=== PATIENT | female | born 1975 | race Hispanic/Latino ===

== ENCOUNTER → 2023-09-14 | Outpatient (CLI) | payer OTHER, BC | END | disposition home or self-care (01) | LOC: RAH 11:53 | PROVIDERS: ATTEND Obstetrics & Gynecology | DX: N93.9 Abnormal uterine and vaginal bleeding, unspecified (principal); R93.89 Abnormal findings on diagnostic imaging of other specified body structures; D25.9 Leiomyoma of uterus, unspecified; N83.202 Unspecified ovarian cyst, left side; N83.201 Unspecified ovarian cyst, right side | CPT/HCPCS: 76830 ==

== ENCOUNTER → 2023-11-14 | Outpatient (CLI) | payer OTHER, BC | END | disposition home or self-care (01) | LOC: RAH 13:19 | PROVIDERS: ATTEND Obstetrics & Gynecology | DX: D25.9 Leiomyoma of uterus, unspecified (principal); N85.8 Other specified noninflammatory disorders of uterus; R93.89 Abnormal findings on diagnostic imaging of other specified body structures | CPT/HCPCS: 76830 ==

== ENCOUNTER → 2024-07-08 | Outpatient (CLI) | payer BC, OTHER | END | disposition home or self-care (01) | LOC: RAH 08:45 | PROVIDERS: ATTEND Obstetrics & Gynecology | DX: Z12.31 Encounter for screening mammogram for malignant neoplasm of breast (principal); R92.333 Mammographic heterogeneous density, bilateral breasts | CPT/HCPCS: 77063; 77067 ==

== ENCOUNTER → 2024-07-17 | Outpatient (CLI) | payer BC, OTHER | END | disposition home or self-care (01) | LOC: RAH 13:17 | PROVIDERS: ATTEND Physical Medicine & Rehabilitation | DX: M48.02 Spinal stenosis, cervical region (principal); M54.12 Radiculopathy, cervical region | CPT/HCPCS: 72141 ==

== ENCOUNTER → 2024-11-06 | Outpatient (CLI) | payer BC, OTHER ==
--- NOTE | 2024-11-06 14:42 | HMCIMG ---
LEFT ANKLE RADIOGRAPHS - 3 VIEWS INDICATION: Pain COMPARISON: None FINDINGS: AP, lateral, and oblique views. No fracture or dislocation identified. The talar dome is intact. Ankle mortise and tibial plafond are well maintained. No significant joint effusion is present. No radiopaque foreign body noted. IMPRESSION: No evidence for fracture or dislocation.
--- NOTE | 2024-11-06 14:43 | HMCIMG ---
LEFT FOOT RADIOGRAPHS - 3 VIEWS INDICATION: Pain COMPARISON: None FINDINGS: AP, lateral, and oblique views. No fracture or subluxation identified. Midfoot alignment is well maintained. No radiopaque foreign body noted. IMPRESSION: No evidence for fracture or subluxation.
== END | disposition home or self-care (01) ==
LOC: RAH 11:28
PROVIDERS: ATTEND Physician Assistant Medical
DX: M25.572 Pain in left ankle and joints of left foot (principal)
CPT/HCPCS: 73610; 73630

== ENCOUNTER → 2025-08-05 | Outpatient (CLI) | payer BC, OTHER ==
[~2025-08-05] MED LIST: LIDOCAINE PF 100MG/5ML (2%) SYRINGE 5ML ONE; MIDAZOLAM HCL 1 MG/ML 2ML VIAL ONE
--- NOTE | 2025-08-06 13:37 | HMCIMG ---
DIGITAL BILATERAL SCREENING MAMMOGRAM WITH TOMOSYNTHESIS Technique: The digital mammographic examination of both breasts in craniocaudal and mediolateral oblique views along with CAD was obtained. Tomosynthesis of both breasts was obtained. History: This is a 50 years year-old female 0, para 0 Ab 0 for 3D screening mammogram. Patient has no family history of breast cancer. Patient has no complaint Reference:Prior mammogram from 07/08/2024, 07/04/2023 and 04/01/2022 are available for comparison.. Breast composition: Breast composition C: The breasts are heterogeneously dense, which may obscure small masses. Finding: The digital mammographic examination of both breasts in craniocaudal and mediolateral oblique view along with CAD demonstrates both breasts to be moderately heterogeneously dense due to fibroglandular stromal elements.. There is no evidence of any dendritic mass, cluster microcalcification or architectural distortion. The Tomosynthesis demonstrates no lesion seen. The retromammary fat appears to be normal. IMPRESSION: Unchanged from prior mammography. NO RADIOGRAPHIC EVIDENCE OF MALIGNANT CHANGES. WE WOULD RECOMMEND ANNUAL FOLLOW UP WITH TOMOSYNTHESIS UNLESS OTHERWISE CLINICALLY INDICATED. I would recommend annual bilateral breast sonogram FINAL ASSESSMENT: ACR: BI-RAD- 2. Benign: Also a negative assessment; finding(s) benign abnormalities. Management: Routine mammography screening. Likelihood of Cancer: Essentially 0% likelihood of malignancy. NOTE: IF A WORK-UP OF THIS PATIENT LEADS TO A BIOPSY, PLEASE FORWARD A COPY OF THE PATHOLOGY REPORT TO OUR OFFICE REQUIRED BY [facility] EFFECTIVE JULY 16, 1994. A NEGATIVE MAMMOGRAM SHOULD NOT PRECLUDE BIOPSY OF A CLINICALLY PALPABLE SUSPICIOUS MASS, 10% OF BREAST CANCERS ARE MAMMOGRAPHICALLY OCCULT. THIS MAMMOGRAPHY FACILITY IS FULLY ACCREDITED BY THE FOOD AND DRUG ADMINISTRATION (FDA). THANK YOU FOR THIS REFERRAL.
== END | disposition home or self-care (01) ==
LOC: RAH 09:44
PROVIDERS: ATTEND Obstetrics & Gynecology
DX: Z12.31 Encounter for screening mammogram for malignant neoplasm of breast (principal); R92.333 Mammographic heterogeneous density, bilateral breasts
CPT/HCPCS: 77063; 77067; J2003; J2250; J2704; J3010; J3490